=== PATIENT | male | born 1990 | race Caucasian/White ===

== ENCOUNTER 2021-10-08 08:31 | Emergency (ER) | payer MEDICAID, SELFPAY ==
[2021-10-08 08:32] VITALS: BP 148/122; PULSE 108; RESP 30; TEMP 36.1; O2SAT 97; BMI 27.1
[2021-10-08 09:29] LABS: Absolute Neutrophil Count 8.7 X10^3/uL (2.0-7.7); Basophil# 0.05 X10^3/uL; Basophil% 0.5 % (0-1); Eosinophil# 0.03 X10^3/uL; Eosinophils% 0.3 % (0-5); Hemoglobin 16.6 g/dL (13.0-16.5); Lymphocyte % 11.2 % (19-41); Mean Corp Hgb Conc 34.6 g/dL (32-36); Mean Corpuscular Hgb 29.5 pg (27.0-32.0); Mean Corpuscular Volume 85.3 fL (80-94); Mean Platelet Vol. 10.3 fl (6.2-12.0); Monocyte# 0.65 X10^3/uL; Monocyte% 6.1 % (0-10); NRBC Flagged by Analyzer 0 % (0-5); Neutrophil # 8.73 X10^3/uL (2.7-7.7); Neutrophil % 81.2 % (47-70); Platelet Count 374 K/mm3 (150-450); RBC Distribution Width CV 13.2 % (11.6-14.6); RBC Distribution Width SD 41.1 fl (35.1-43.9); Red Blood Count 5.63 M/mm3 (4.6-6.2); White Blood Count 10.7 K/mm3 (4.4-11.0)
--- NOTE | 2021-10-08 09:30 | EX.ED.DYSGE1 ---
HPI History of Present Illness Chief Complaint: Anxiety Detail of Chief Complaint: Nausea, vomiting and diarrhea with palpitations Informant: patient Onset/Context/Timing Onset: Today and Hours Context: Sudden Onset Timing: Intermittent Quality: GI and feeling anxious Location: GI Current Severity: Mild Maximum Severity: Moderate Worsened by: Unknown Relieved by: Nothing Associated Symptoms Associated Symptoms: Chills, piloerection Narrative Narrative: Patient is a 30-year-old male who presents from work because of chills, nausea, vomiting and diarrhea that started this morning. He also complains of palpitations. His last dose of clonidine, which he takes for hypertension, was last evening. His last dose of risperidone and Paxil was end of last week. He denies headache, double vision, blurred vision loss of vision. He denies ringing in his ears or decreased hearing. He does endorse nasal congestion. He denies sore throat or change in voice. He does report slight cough. He is unaware of any ill contacts. He denies dysuria, frequency, urgency or hematuria. He does report thirst. He denies orthostatic symptoms. He denies myalgias or arthralgias. He denies rash. He has history of drug addiction. He has been sober for 4 years. Prior similar symptoms: No Recent Illness/Hospitalization: No [facility] Medical History Anxiety Depression Tourettes disease Home Medications clonidine HCl 0.2 mg PO QHS #30 tab 10/08/21 [Rx Last Taken Unknown] paroxetine HCl [Paxil] 40 mg PO QHS #30 tab 10/08/21 [Rx Last Taken Unknown] risperidone [Risperdal] 1 mg PO QHS #30 tab 10/08/21 [Rx Last Taken Unknown] Allergy/AdvReac Type Severity Reaction Status Date / Time LAUGHING GAS AdvReac Nausea/Vom/ Uncoded 10/08/21 09:27 Diarrhea Surgical History H/O knee surgery H/O shoulder surgery Social History (Updated 10/08/21 @ 09:[address] Michael Greco MD) household members: significant other and children Smoking Status: Current every day smoker tobacco type: cigarettes alcohol intake: former substance use type: former substance user ROS ROS ED Constitutional Constitutional ED: Reports chills, fever(s), subjective and sweats; Denies weight loss Eyes Eyes: Denies blurry vision, change in vision or diplopia ENT ENT ED: Denies ear pain, rhinorrhea or sore throat Cardiovascular Cardiovascular: Reports palpitations; Denies chest pain, orthopnea, paroxysmal nocturnal dyspnea or racing heartbeat Respiratory/Chest Respiratory/Chest: Reports cough; Denies dyspnea, dyspnea on exertion, orthopnea, paroxysmal nocturnal dyspnea or sputum Gastrointestinal Gastrointestinal: Reports abdominal pain, diarrhea, nausea and vomiting; Denies constipation or melena Genitourinary Genitourinary ED: Denies dysuria or hematuria Musculoskeletal Musculoskeletal: Denies arthralgias, back pain, myalgias or neck pain Integumentary Denies abscess, Abrasions or rash Neurologic Neurologic: Reports weakness; Denies headache(s) or paresthesias Psychiatric Psychiatric: Reports anxiety; Denies depression or suicidal thoughts Endocrine Endocrinology: Denies polydipsia, polyphagia or polyuria Allergic/Immunologic Allergic/Immunologic ED: Denies mouth swelling, tongue swelling or urticaria EXAM Physical Exam Const Vital Signs: 10/08/21 08:32 10/08/21 11:00 10/08/21 13:16 Temperature 97 F L Temperature Source Temporal Pulse Rate 108 H 78 88 Respiratory Rate 30 H 16 18 Blood Pressure 148/122 H 135/78 H 116/78 Blood Pressure Mean 130 97 90 Pulse Ox 97 98 97 Oxygen Delivery Method Room Air Room Air Room Air Patient has Son erection noted forearm and arm bilaterally. He appears pale. He appears ill. Positive well nourished and well developed General Appearance ED: well developed and pallor; Negative for cyanotic, diaphoretic or NAD HEENT Reports TM's clear and dry mucous membranes; Denies moist mucous membranes HEENT Narrative: Uvula is midline. There is no angioedema. There is no erythema or exudate in the posterior pharynx. Nares patent with minimal clear drainage noted. Negative for trauma or tenderness Tympanic Membrane ED: Yes TM's clear Mouth ED: Yes dry mucous membranes Mouth: dry mucous membranes Eyes PERRL and EOMs intact bilaterally General Eye ED: Negative for pale conjunctiva or scleral icterus Neck no lymphadenopathy, supple and no JVD Resp normal respiratory effort and clear to auscultation bilaterally Cardio regular rhythm and no murmurs Rate: tachycardic GI normal to inspection, nondistended, normoactive bowel sounds, non-tender and non-distended Palpation: soft Back/Spine no CVA tenderness Cervical Spine: Negative for cervical spine tenderness Thoracic Spine / Upper Back: Negative for thoracic spinal tenderness or paraspinal muscle tenderness Extremity normal to inspection General Extremety ED: Negative for edema or tenderness General Extremity: Negative for edema Neuro oriented x3, CN's II-XII intact bilaterally and no sensory deficits noted Neuro Narrative: DTR 3-4+ symmetric upper and lower extremity. There is no Babinski sign noted. He does have 3-4 beats of clonus at the ankles bilaterally. Sensorium / Orientation: alert Motor Exam: strength 5/5 throughout Psych mental status grossly normal Skin no rashes or lesions noted and no wounds General Skin Exam: pallor; Negative for jaundice MDM MDM MDM Narrative Medical decision making narrative: Patient has symptoms consistent with viral infection. Patient is hyperreflexic which is unusual however he states no once tested his reflexes in the past. He has 3-4 beats of clonus at the ankles. Lab Data Attestation: I reviewed the patient's lab results. Lab results narrative: White count is upper end of normal. There is a slight shift with no bandemia. Hemoglobin is elevated which may be due to dehydration. Comprehensive metabolic panel is remarkable for a glucose of 143. Alk phos is 170 which is elevated. Lactate is elevated 5.5. Patient was treated with Zofran for his nausea vomiting. 1 L of normal saline was ordered. He will need reevaluation an hour. Repeat lactate after fluid boluses is 1.5. Patient feels better. He be discharged home with a work excuse. Labs: Laboratory Results - last 24 hr 10/08/21 10/08/21 10/08/21 09:20 09:20 09:20 WBC 10.7 RBC 5.63 Hgb 16.6 H Hct 48.0 MCV 85.3 MCH 29.5 MCHC 34.6 RDW Std Deviation 41.1 RDW Coeff of Ludivina 13.2 Plt Count 374 MPV 10.3 Immature Gran % (Auto) 0.700 Neut % (Auto) 81.2 H Lymph % (Auto) 11.2 L [place] % (Auto) 6.1 Eos % (Auto) 0.3 Baso % (Auto) 0.5 Absolute Neuts (auto) 8.7 H Absolute Lymphs (auto) 1.20 Nucleated RBC % 0 Sodium 136 Potassium 3.2 L Chloride 102 Carbon Dioxide 21.0 Anion Gap 13 BUN 9 Creatinine 1.18 Estim Creat Clear Calc 102.30 Est GFR (MDRD) Af Amer 94 Est GFR (MDRD) Non-Af 78 BUN/Creatinine Ratio 7.6 L Glucose 143 H Lactic Acid 5.4 H* Calcium 9.8 Total Bilirubin 0.70 AST 24 ALT 44 Alkaline Phosphatase 170 H Total Protein 8.6 H Albumin 5.0 Globulin 3.6 Albumin/Globulin Ratio 1.4 10/08/21 13:15 WBC RBC Hgb Hct MCV MCH MCHC RDW Std Deviation RDW Coeff of Ludivina Plt Count MPV Immature Gran % (Auto) Neut % (Auto) Lymph % (Auto) [place] % (Auto) Eos % (Auto) Baso % (Auto) Absolute Neuts (auto) Absolute Lymphs (auto) Nucleated RBC % Sodium Potassium Chloride Carbon Dioxide Anion Gap BUN Creatinine Estim Creat Clear Calc Est GFR (MDRD) Af Amer Est GFR (MDRD) Non-Af BUN/Creatinine Ratio Glucose Lactic Acid 1.5 Calcium Total Bilirubin AST ALT Alkaline Phosphatase Total Protein Albumin Globulin Albumin/Globulin Ratio Patient was asked to eat. He was given a regular diet. A second liter of normal saline was ordered. Repeat lactate was ordered. Discharge Plan Triage Chief Complaint: Anxiety ED Provider: Michael Greco Dx/Rx/DC Orders Clinical Impression: Systemic viral illness, Nausea vomiting and diarrhea, Severe dehydration, Acidosis, lactic Instructions: ED Viral Syndrome (Adult), ED Vomiting and Diarrhea ... Prescriptions: New paroxetine HCl [Paxil] 40 mg tablet 40 mg PO QHS Qty: 30 RF: 0 clonidine HCl 0.2 mg tablet 0.2 mg PO QHS Qty: 30 RF: 0 risperidone [Risperdal] 1 mg tablet 1 mg PO QHS Qty: 30 RF: 0 Primary Care Provider: Care Physician,No Primary Referrals: Mini Lewis MD [STAFF PHYSICIAN] - 5-7 Days Care Physician,No Primary [Primary Care Provider] - Disposition Disposition: Home, Self Care
[2021-10-08] MEDS: 0.9% Normal Saline 1,000 ML 1000 ML IV ×2 (09:32→12:32)
[2021-10-08] MEDS: Ondansetron 4 MG/2 ML Vial IV (09:32)
[2021-10-08 09:45] LABS: ALB/GLOB Ratio 1.4 RATIO (0.9-2.4); AST(SGOT) 24 U/L (15-37); Alanine Aminotransfer ALT/SGPT 44 U/L (16-61); Alkaline Phosphatase 170 U/L (45-117); Anion Gap 13 (5-15); BUN 9 mg/dL (7-18); BUN/Creat Ratio 7.6 RATIO (10-20); Calcium,Total 9.8 mg/dL (8.5-10.1); Chloride 102 mmol/L (98-107); Creatinine, Serum 1.18 mg/dL (0.70-1.30); EST Glomerular Filtration Rate 78 mL/min (>60); Est Glom Filt Rate - Afr Amer 94 mL/min (>60); Globulin 3.6 g/dL (2.2-4.2); Glucose 143 mg/dL (74-106); Potassium 3.2 mmol/L (3.5-5.1); Protein, Total 8.6 g/dL (6.4-8.2); Sodium Level 136 mmol/L (136-145)
[2021-10-08 09:59] LABS: Lactic Acid 5.4 mmol/L (0.4-1.9)
[2021-10-08 11:00] VITALS: BP 135/78; PULSE 78; RESP 16; O2SAT 98
--- NOTE | 2021-10-08 12:11 | CM.ED ---
SEAMUS Note Referral Source: Case Find Referral Reason: NO PCP and Anxiety SEAMUS met with MD. MD said that patient is sick. MD said that patient told him he has been out of psych medications for a couple of days. SW met with patient. Patient said that he has been out of psych medication for a couple of days. He said that he called [facility] on Friday and they told him he would have to go through 3 or 6 months of therapy before he would meet with psychiatrist. Patient was seeing Dr. Cuadra at [facility]. Patient reports no idea of the dosage or psych medication he was taking. Patient said that he has been sobre for 4 years and is trying to cut down on alcohol. Patient said I have only been drunk a couple of times. Patient gave this marketing copywriter permission to speak to [facility]. SW called [facility] and spoke to Rola the nurse. Patient has been closed since June. Last seen in May and his prescriptions should have been out in July. Patient is not open for services. [facility]ola said that patient can call in and speak to intake today and that he would need to do an assessment as his case is closed but not necessarily 6 months of counseling. SW got patient's med list which includes Risperidal 3 mg 1 mg at night,Paxil 40 mg at bed time and Clonidine is 0.2 at bedtime. Sw met with patient. [facility] was [facility] and [facility]. SW encouraged patient to contact [facility] today, as he was previously linked with them, and patient agreed to contact [facility] on this date. Emotional support provided. MD and patient's MD updated. Plan: Resources provided. Juliana MORAN
[2021-10-08 13:16] VITALS: BP 116/78; PULSE 88; RESP 18; O2SAT 97
[2021-10-08 13:27] LABS: Reflex Lactate? Y
[2021-10-08 13:50] LABS: Lactic Acid 1.5 mmol/L (0.4-1.9)
[2021-10-08 14:21] VITALS: BP 121/73; PULSE 72; RESP 16; TEMP 36.9; O2SAT 98
== END 2021-10-08 14:23 | disposition home or self-care (01) ==
PROVIDERS: Emergency Provider Emergency Medicine; Visit Provider Emergency Medicine
DX: B34.9 Viral infection, unspecified (principal); R11.2 Nausea with vomiting, unspecified; E87.2 Acidosis; R25.8 Other abnormal involuntary movements; F17.210 Nicotine dependence, cigarettes, uncomplicated; R68.83 Chills (without fever); R09.81 Nasal congestion; I10 Essential (primary) hypertension; F41.9 Anxiety disorder, unspecified; E86.0 Dehydration; R19.7 Diarrhea, unspecified
CPT/HCPCS: 80053; 83605; 85025; 96361; 96374; 96375; 99285; J7030; A4216; J2405